=== PATIENT | female | born 1965 ===

== ENCOUNTER 2021-11-08 05:30 | Day surgery (SDC) | payer OTHER ==
[~2021-11-08] VITALS: Ht 154.9 cm; Wt 83.9 kg
[~2021-11-08 05:30] MED LIST: AVALIDE
== END 2021-11-08 12:20 | disposition home or self-care (01) ==
LOC: CIR.AMB 05:30
PROVIDERS: ATTEND Specialist
DX: L72.0 Epidermal cyst (principal); Z20.822 Contact with and (suspected) exposure to COVID-19; I10 Essential (primary) hypertension; Z86.16 Personal history of COVID-19

== ENCOUNTER 2024-11-23 11:02 | Outpatient (CLI) | payer OTHER ==
[2024-11-23 12:11] LABS: BASO % 0.4 % (0.1-1.2); EOS # 0.15 (0.04-0.54); EOS % 1.5 % (0.7-7.0); LYMPH # 2.90 (1.18-3.74); LYMPH % 29.2 % (19.3-53.1); MEAN PLATELET VOLUME 10.50 fl (9.4-12.4); MONO # 0.99 (0.24-0.82); MONO % 10.0 % (4.7-12.5); NEUT # 5.82 (1.56-6.13); NEUT % 58.6 % (34.0-71.1); RED CELL DISTRIBUTION WIDTH 14.6 % (11.6-14.4)
[2024-11-23 12:30] LABS: URINE APPEARANCE Clear; URINE BILIRRUBIN Negative (NEGATIVE); URINE BLOOD Negative; URINE COLOR Yellow; URINE GLUCOSE Negative (NEGATIVE); URINE KETONE Negative (NEGATIVE); URINE LEUKOCYTE Negative; URINE NITRATE Negative; URINE PROTEIN Negative (NEGATIVE); URINE UROBILINOGEN 1.0 E.U./dl
[2024-11-23 12:34] LABS: URINE BACTERIA 19.1 uL (0.0-1933); URINE EPITHELIAL CELLS 11.0 uL (0.0-38.8); URINE RBC 34.1 uL (0.0-20.8); URINE WBC 4.3 uL (0.0-23.2)
[2024-11-23 12:55] LABS: BUN CREA RATIO 13.0 (7.0-25.0); CHOL HDL RATIO 3.9 (0-5.0); CREATININE SERUM 0.75 mg/dL (0.55-1.02); GFR 79.37; GLUCOSE FASTING 85.0 mg/dL (65-100); HDL 51.0 mg/dl (40-60); LDL 124.0 mg/dl (0-130); OSMOLALITY SERUM 278.0 MOSM/KG (275-295); T4 TOTAL 7.91 UG/DL (4.8-13.9); TSH 1.55 uIU/mL (0.358-3.74); VLDL 24.0 (0-39)
[2024-11-23 13:24] LABS: URINE CAST 0.14 uL (0.0-1.40)
[2024-11-23 13:25] LABS: COVID-19 AG NEGATIVE (NEGATIVE); MYCOPLASMA PNEUMONIAE IGM NON REACTIVE (NO REACTIVE)
== END 2024-11-23 11:05 | disposition home or self-care (01) ==
LOC: LAB 11:02
PROVIDERS: ATTEND Internal Medicine Cardiovascular Disease
DX: E03.9 Hypothyroidism, unspecified (principal); E78.2 Mixed hyperlipidemia; I10 Essential (primary) hypertension; R73.03 Prediabetes; J11.1 Influenza due to unidentified influenza virus with other respiratory manifestations; A49.3 Mycoplasma infection, unspecified site; Z20.822 Contact with and (suspected) exposure to COVID-19